=== PATIENT | female | born 1955 | race Two or more races ===

== ENCOUNTER → 2021-02-04 | Outpatient (CLI) | payer MEDICARE, OTHER ==
--- NOTE | 2021-02-04 16:07 | CT ---
EXAMINATION TYPE: CT brain wo con DATE OF EXAM: 02/04/2021 COMPARISON: None HISTORY: 65 year-old female right-sided head injury and pain TECHNIQUE: Examination was done in axial plane without intravenous contrast. Coronal and sagittal r econstructions performed. CT DLP: 1029.9 mGycm Automated exposure control for dose reduction was used. FINDINGS: There is no evidence of acute intracranial hemorrhage, acute ischemic changes, mass, mass-effect, or extra-axial fluid collection. There is no effacement of cerebral sulci or basal subarachnoid cister ns. There is no hydrocephalus. There is no midline shift. Peraza-white matter distinction is preserv ed. Benign basal ganglia calcifications on the left. A couple polyps or mucosal retention cysts in the left maxillary sinus measuring up to 1.2 cm. Mastoi d air cells are pneumatized. Orbits and globes are intact. IMPRESSION: No acute intracranial abnormality seen.
== END | disposition home or self-care (01) ==
LOC: RADCTMAIN 15:37
PROVIDERS: ATTEND Family Medicine
DX: S09.90XA Unspecified injury of head, initial encounter (principal)
CPT/HCPCS: 70450

== ENCOUNTER 2021-04-17 13:30 | Emergency (ER) | payer MEDICARE, OTHER ==
[2021-04-17 13:50] VITALS: TEMP 87.4
--- NOTE | 2021-04-17 14:13 | ED ---
General Adult HPI - General Chief complaint: Cardiac Arrest/CPR Stated complaint: cardiac arrest Time Seen by Provider: 04/17/21 13:30 Source: patient, EMS, RN notes reviewed, old records reviewed Mode of arrival: EMS - History of Present Illness Initial comments: This a 66-year-old female presents emergency Department with EMS via EMS. According to EMS family stated the patient attacks edematous and 30 though they did not receive the textile noon that she had had enough and did not want to continue. went outside and found the patient in the snow about 450 yards from the house and according to the granddaughter it appeared that she had taken a bunch of her Dilaudid as well. When EMS found her she was pulseless and not breathing at all. They intubated the patient began CPR and in route gave her 6 epis prior to arrival. EMS also stated they gave 4 mg of Narcan. Patient remained asystolic the whole route and on arrival was pulseless as well. According to family patient has been very depressed lately. - Related Data Allergies Allergy/AdvReac Type Severity Reaction Status Date / Time Unable to Assess Allergy Verified 04/17/21 13:41 Review of Systems ROS Statement: Those systems with pertinent positive or pertinent negative responses have been documented in the HPI. ROS Other: All systems not noted in ROS Statement are negative. Past Medical History Past Medical History: Unable to Obtain History of Any Multi-Drug Resistant Organisms: Unobtainable Past Surgical History: Unable to Obtain Past Psychological History: Unable to Obtain Smoking Status: Unknown if ever smoked Past Alcohol Use History: Unable to Obtain Past Drug Use History: Unable to Obtain General Exam - General Exam Comments Initial Comments: GENERAL: Patient is well-developed and well-nourished. Patient has no spontaneous movement patient is not taking any breaths. ENT: Neck is soft and supple. No significant lymphadenopathy is noted. Oropharynx is clear. Moist mucous membranes. Neck has full range of motion without eliciting any pain. EYES: Pupils are fixed and dilated. PULMONARY: No breath sounds CARDIOVASCULAR: There are no heart sounds. ABDOMEN: No gross abnormalities noted SKIN: Skin is clear with no lesions or rashes and otherwise unremarkable. Skin is extremely cold NEUROLOGIC: Patient is completely unresponsive MUSCULOSKELETAL: Normal extremities with adequate strength and full range of motion. LYMPHATICS: No significant lymphadenopathy is noted PSYCHIATRIC: Unable at this time to assess Course Vital Signs 04/17/21 04/17/21 13:30 13:49 Temperature 85.3 F L 87.4 F L Medical Decision Making - Medical Decision Making I spoke with him and 2 occasions. Patient was pronounced at 1400 Critical Care Time Critical Care Time: Yes Total Critical Care Time: 35 Disposition Clinical Impression: Suicide, Cardiopulmonary arrest, Narcotic overdose Disposition: Referrals: Robert Rendon DO [Primary Care Provider] - 1-2 days Time of Disposition: 14:13 Preliminary Cause of : Cardiopulmonary arrest, narcotic overdose
[2021-04-17 17:51] VITALS: PULSE 0; RESP 0
== END 2021-04-17 17:52 | disposition expired ==
LOC: EC 13:30
DX: I46.9 Cardiac arrest, cause unspecified (principal); T40.602A Poisoning by unspecified narcotics, intentional self-harm, initial encounter
CPT/HCPCS: 99291